=== PATIENT | male | born 1965 | race Caucasian/White ===

== ENCOUNTER 2018-10-09 00:16 | Emergency (ER) | payer MEDICARE, OTHER ==
[~2018-10-09] VITALS: Ht 188 cm; Wt 75.6 kg
[2018-10-09 00:19] VITALS: BP 147/69
== END 2018-10-09 01:01 | disposition home or self-care (01) ==
LOC: ED 00:55
DX: H10.022 Other mucopurulent conjunctivitis, left eye (principal)
CPT/HCPCS: 99283